=== PATIENT | female | born 1975 | race Caucasian/White ===

== ENCOUNTER 2022-12-13 17:27 | Emergency (ER) | payer SELFPAY | END 2022-12-13 18:36 | LOC: CSHERS 17:27 | DX: Z53.21 Procedure and treatment not carried out due to patient leaving prior to being seen by health care provider (principal) ==

== ENCOUNTER 2022-12-16 17:42 | Emergency (ER) | payer OTHER, SELFPAY ==
[2022-12-16] MEDS ORDERED: Metoclopramide HCl 10 MG/2 ML VIAL ONE (19:33)
[2022-12-16] MEDS ORDERED: Acetaminophen 500 MG TAB ONE (19:33)
[2022-12-16] MEDS ORDERED: Ketorolac Tromethamine 30 MG/ML VIAL ONE (20:34)
== END 2022-12-16 21:22 | disposition home or self-care (01) ==
LOC: CSHERS 17:42
DX: G43.909 Migraine, unspecified, not intractable, without status migrainosus (principal)
CPT/HCPCS: 96361; 96374; 96375; J1885; J2765

== ENCOUNTER 2023-09-05 13:30 | Emergency (ER) | payer SELFPAY ==
[2023-09-05] MEDS ORDERED: Metoclopramide HCl 10 MG (2 mL) VIAL ONE (14:17)
[2023-09-05] MEDS ORDERED: diphenhydrAMINE 50 MG/ML VIAL ONE (14:17)
[2023-09-05] MEDS ORDERED: Ketorolac Tromethamine 30 MG (1 mL) VIAL ONE (14:17)
[2023-09-05] MEDS ORDERED: Acetaminophen 500 MG TAB ONE (14:17)
== END 2023-09-05 16:35 | disposition home or self-care (01) ==
LOC: CSHERS 13:30
DX: G43.909 Migraine, unspecified, not intractable, without status migrainosus (principal)
CPT/HCPCS: 70450; 96374; 96375; J1200; J1885; J2765

== ENCOUNTER 2023-12-12 12:20 | Emergency (ER) | payer OTHER, SELFPAY ==
[2023-12-12] MEDS ORDERED: Acetaminophen 500 MG TAB ONE (14:10)
== END 2023-12-12 14:25 | disposition home or self-care (01) ==
LOC: CSHERS 12:20
DX: S09.90XA Unspecified injury of head, initial encounter (principal); W18.30XA Fall on same level, unspecified, initial encounter
CPT/HCPCS: 70450; 70486

== ENCOUNTER 2024-04-13 07:50 | Outpatient (CLI) | payer OTHER ==
[2024-04-13] MEDS ORDERED: Magnevist 469MG/ML 20 ML VIAL ONE ×2 (09:37→09:38)
== END 2024-04-13 07:51 | disposition home or self-care (01) ==
LOC: CSHCT 07:50
PROVIDERS: ATTEND Psychiatry & Neurology Neurology
DX: S09.90XD Unspecified injury of head, subsequent encounter (principal); G40.909 Epilepsy, unspecified, not intractable, without status epilepticus; D84.9 Immunodeficiency, unspecified; R55 Syncope and collapse; G04.81 Other encephalitis and encephalomyelitis; R41.3 Other amnesia; G93.89 Other specified disorders of brain; M47.812 Spondylosis without myelopathy or radiculopathy, cervical region; M47.816 Spondylosis without myelopathy or radiculopathy, lumbar region
CPT/HCPCS: 70450; 70553; 72146; 72148; 72156; 76377; A9579

== ENCOUNTER 2025-05-25 13:20 | Emergency (ER) | payer OTHER ==
[2025-05-25 14:19] LABS: #Basophils Less than 0.03 10x3/uL (0.0-0.2); #Eosinophils 0.03 10x3/uL (0.0-0.5); #Monocytes 0.44 10x3/uL (0.0-1.1); #Neutrophils 7.30 10x3/uL (1.5-8.4); %Basophils 0.1 % (0.0-2.0); %Eosinophils 0.3 % (0.0-6.0); %Lymphocytes 9.5 % (18.0-47.0); %Monocytes 5.1 % (0.0-10.0); %Neutrophils 84.5 % (40.0-75.0); Hematocrit 40.4 % (34.9-44.5); Hemoglobin 12.7 g/dL (12.0-15.5); Mean Corpuscular Hemoglobin 28.0 pg (27.0-33.0); Mean Corpuscular Volume 89.2 fL (81.6-98.3); Platelet Count 332 10x3/uL (150-450); Red Blood Cell (RBC) Count 4.53 10x6/uL (3.90-5.03); White Blood Cell (WBC) Count 8.64 10x3/uL (3.5-10.5)
[2025-05-25] MEDS ORDERED: Iopamidol 370 76% 100 ML VIAL ONE (14:24)
[2025-05-25] MEDS ORDERED: Metoclopramide HCl 10 MG (2 mL) VIAL ONE (14:36)
[2025-05-25] MEDS ORDERED: Acetaminophen 500 MG TAB ONE (14:36)
[2025-05-25 14:48] LABS: ALT (SGPT) 12 U/L (Less than 34); AST (SGOT) 15 U/L (11-34); Albumin 3.8 g/dL (3.1-4.5); Alkaline Phosphatase 95 U/L (40-110); Anion Gap 10 mmol/L (10-20); BUN (Urea Nitrogen) 17 mg/dL (9.8-20.1); Bilirubin, Total 0.3 mg/dL (0.3-1.2); Calc. Creatinine Clearance 0 mL/min (70-130); Calcium 8.6 mg/dL (7.8-10.44); Carbon Dioxide 30 mmol/L (22-29); Chloride 103 mmol/L (98-107); Globulin 3.0 g/dL (2.4-3.5); Glucose 137 mg/dL (70-105); Potassium 4.3 mmol/L (3.5-5.1); Sodium 139 mmol/L (136-145)
[2025-05-25 14:50] LABS: Troponin I Less than 0.010 ng/mL (< 0.028)
[2025-05-25 15:05] LABS: Lipase 4 U/L (8-78)
[2025-05-25 16:18] LABS: Glucose, Urine (Dipstick) Normal (Negative); Leukocyte 25 (Negative); Protein, Urine (Dipstick) 30 mg/dl (Neg-Trace); Specific Gravity, Urine 1.020 (1.005-1.030)
[2025-05-25 16:38] LABS: Bacteria/HPF 2+ HPF (None Seen); CAUTI Indications for Culture Pelvic or flank pain; Mucous/LPF 1+ LPF (<2+); RBC/HPF 0-3 HPF (0-3); WBC/HPF 0-3 HPF (0-3); Yeast-Budding 3+ HPF (None Seen)
[2025-05-25 16:40] LABS: Urine Culture Reflex No No
== END 2025-05-25 17:04 | disposition left against medical advice (07) ==
LOC: CSHERS 13:20
DX: J45.909 Unspecified asthma, uncomplicated (principal); N39.0 Urinary tract infection, site not specified; G43.909 Migraine, unspecified, not intractable, without status migrainosus; G93.89 Other specified disorders of brain; R29.700 NIHSS score 0
CPT/HCPCS: 70450; 71045; 71275; 74177; 80053; 81001; 83690; 84484; 85025; 87428; 93005; 96374; J2765; J7620; Q9967